=== PATIENT | male | born 1960 | race Caucasian/White ===

== ENCOUNTER 2021-06-11 17:19 | Emergency (ER) | payer OTHER ==
[2021-06-11 18:23] LABS: HCT 44.8 % (42.0-52.0); HGB 15.3 g/dl (13.2-18.0); MCH 30.8 pg (25.0-31.0); MCHC 34.2 g/dL (32.0-36.0); MCV 90.3 fL (78.0-100.0); MPV 10.7 fL (6.0-9.5); RBC 4.96 M/uL (4.70-6.00); RDW 12.2 % (11.5-14.0); WBC 3.9 K/uL (4.0-10.5)
[2021-06-11 18:47] LABS: ALBUMIN 3.5 g/dL (3.4-5.0); BILIRUBIN - TOTAL 0.3 mg/dL (0.2-1.0); BUN/CREAT RATIO (CALC) 17.6 RATIO; CREATININE 0.85 mg/dL (0.67-1.17); GLOBULIN (CALCULATION) 3.7 g/dL; POTASSIUM 3.9 mmol/L (3.5-5.1); TOTAL PROTEIN 7.2 g/dL (6.4-8.2)
[2021-06-11] MEDS ORDERED: ZPAK PO (20:51)
[2021-06-11] MEDS ORDERED: VENTOLIN HFA18 GM INH (20:51)
[2021-06-11] MEDS ORDERED: ZOFRAN4 M1 PO (20:52)
== END 2021-06-11 21:04 | disposition home or self-care (01) ==
LOC: FER 17:19
PROVIDERS: Emergency Medicine
DX: U07.1 COVID-19 (principal); I10 Essential (primary) hypertension; E66.9 Obesity, unspecified; Z23 Encounter for immunization; Z88.2 Allergy status to sulfonamides
CPT/HCPCS: 36415; 71045; 80053; 84484; 93005; M0243; Q0244; U0002